=== PATIENT | female | born 1955 | race Caucasian/White ===

== ENCOUNTER 2016-11-26 18:33 | Emergency (ER) | payer MEDICAID ==
[2016-11-26 18:44] VITALS: O2SAT 97
[2016-11-26] MEDS ORDERED: Oxycodone/Acetaminophen 5/325 mg Tab PO STA (19:50)
[2016-11-26] MEDS ORDERED: Tmp-Smz 800 mg-160 mg DS Tab PO STA (19:50)
[2016-11-26] MEDS ORDERED: Tmp-Smz 800 mg-160 mg DS Tab ONE (20:12)
[2016-11-26] MEDS ORDERED: Oxycodone/Acetaminophen 5/325 mg Tab ONE (20:12)
--- NOTE | 2016-11-26 21:36 | C.PDOC ---
History Of Present Illness 61 year old female pt c/o small wound on the lower right abdomen that occurred a week ago. Pt notes abscess on lower right abdomen which became itchy and red the following day. Pt then notes cleaning the wound with peroxide. pt reports fever 5 days ago, but denies any skin discharges, nausea, vomiting, diarrhea, or any other complaints. Time Seen by Provider: 11/26/16 19:45 Chief Complaint (Nursing): Abnormal Skin Integrity History Per: Patient History/Exam Limitations: no limitations Onset/Duration Of Symptoms: Days Current Symptoms Are (Timing): Still Present Location Of Injury: Right: Abdomen (Lower right abdomen) Severity: Mild Past Medical History Reviewed: Historical Data, Nursing Documentation, Vital Signs Vital Signs: Last Vital Signs Temp 97.9 F 11/26/16 21:49 Pulse 60 11/26/16 21:49 Resp 18 11/26/16 21:49 BP 144/64 11/26/16 21:49 Pulse Ox 97 11/27/16 01:40 - Medical History PMH: Arthritis, HTN, Peripheral Edema Denies: Chronic Kidney Disease Family History: States: Unknown Family Hx - Social History Hx Tobacco Use: No Hx Alcohol Use: No Hx Substance Use: No - Immunization History Hx Tetanus Toxoid Vaccination: No Hx Influenza Vaccination: Yes Hx Pneumococcal Vaccination: No Review Of Systems Except As Marked, All Systems Reviewed And Found Negative. Constitutional: Positive for: Fever (5 days ago) Gastrointestinal: Negative for: Nausea, Vomiting, Diarrhea Skin: Positive for: Lesions (Right lower abdomen). Negative for: Other (Skin discharges) Physical Exam - Physical Exam Appears: Non-toxic, No Acute Distress Skin: Warm, Dry, Other (2 by 2 cm wound lower abdomen area. 8 by 2 cm cellulitis , no fluctuance) Head: Atraumatic, Normacephalic Chest: Symmetrical Cardiovascular: Rhythm Regular, No Murmur Respiratory: Normal Breath Sounds, No Rales, No Rhonchi, No Wheezing Gastrointestinal/Abdominal: Soft, No Tenderness Neurological/Psych: Oriented x3, Normal Speech, Normal Cognition ED Course And Treatment O2 Sat by Pulse Oximetry: 97 (Room air) Pulse Ox Interpretation: Normal Progress Note: wound cleaned and bandaged properly. NO circumferential nor dermatomal rash to suspect HZ Medical Decision Making Medical Decision Making: Impression: 61 year old female c/o small wound right lower abdomen Plan: -Oxycodone -Bactrim -Reassess and disposition cellulitis and small wound R lower abdomen, LOW susp HZ Patient is resting comfortably, and is in no acute distress. Patient was instructed to follow up with physician/clinic in 1-2 days for further evaluation. Disposition Doctor Will See Patient In The: Office Counseled Patient/Family Regarding: Studies Performed, Diagnosis - Disposition Referrals: Moustapha Christianson MD [Staff Provider] - Disposition: HOME/ ROUTINE Disposition Time: 21:36 Condition: GOOD Additional Instructions: Bactrim DS (antibiotico) 2 veces al federico por 5 luz entero Motrin 600 mg cada 6 horas nicky necesario para dolor Tramadol 50 mg (narcotico) 1 tableta cada 6 horas nicky necessario para adam mas louis Llava la herida con jabon y agua diario. NO pones agua hydroxinado ni alcohol en la herida- se hace peor. Prescriptions: Sulfamethoxazole/Trimethoprim [Bactrim DS 800 mg-160 mg] 1 tab PO BID #9 tab traMADol [Ultram] 50 mg PO Q6H PRN #20 tab PRN Reason: pain Instructions: Cellulitis (ED) Print Language: MALAY - Clinical Impression Clinical Impression: Wound cellulitis - Scribe Statement The provider has reviewed the documentation as recorded by the Scribe Vaughn olmedo All medical record entries made by the Scribe were at my direction and personally dictated by me. I have reviewed the chart and agree that the record accurately reflects my personal performance of the history, physical exam, medical decision making, and the department course for this patient. I have also personally directed, reviewed, and agree with the discharge instructions and disposition.
[2016-11-26 21:50] VITALS: BP 144/64; PULSE 60; RESP 18; TEMP 97.9
== END 2016-11-26 21:50 | disposition home or self-care (01) ==
LOC: C.ER 18:33
DX: S31.103A Unspecified open wound of abdominal wall, right lower quadrant without penetration into peritoneal cavity, initial encounter (principal); L03.311 Cellulitis of abdominal wall; X58.XXXA Exposure to other specified factors, initial encounter

== ENCOUNTER 2017-09-04 15:32 | Observation (INO) | payer MEDICAID ==
[2017-09-04] MEDS ORDERED: Sodium Chloride 0.9% 1,000 ML IV ONE (17:02)
--- NOTE | 2017-09-04 17:17 | C.PDOC ---
History Of Present Illness <Jessica Martinez - Last Filed: 09/04/17 18:38> <Kenny Vyas - Last Filed: 09/04/17 19:17> 62-year-old female, PMHx includes Hypertension, presents to the emergency department with multiple complaints. Patient states she has been experiencing chest pain, generalized weakness, dizziness, non-bloody/non-bilious vomiting and non-bloody/watery diarrhea, that started three days ago. Patient states her last episode of diarrhea and vomiting was yesterday. Patients main complaint today is dizziness, and states it is not positional. No prior cardiac Hx. (Jessica Martinez) History Per: Patient History/Exam Limitations: no limitations Onset/Duration Of Symptoms: Days Current Symptoms Are (Timing): Still Present Severity: Moderate <Jessica Martinez - Last Filed: 09/04/17 18:38> <Kenny Vyas - Last Filed: 09/04/17 19:17> Time Seen by Provider: 09/04/17 16:34 Chief Complaint (Nursing): Abdominal Pain Past Medical History Reviewed: Historical Data, Nursing Documentation, Vital Signs - Medical History PMH: Arthritis, HTN, Peripheral Edema Family History: States: No Known Family Hx - Social History Hx Tobacco Use: No Hx Alcohol Use: No Hx Substance Use: No - Immunization History Hx Tetanus Toxoid Vaccination: No Hx Influenza Vaccination: Yes Hx Pneumococcal Vaccination: No <Jessica Martinez - Last Filed: 09/04/17 18:38> Vital Signs: Last Vital Signs Temp 98.5 F 09/04/17 15:43 Pulse 63 09/04/17 15:43 Resp 18 09/04/17 15:43 BP 121/70 09/04/17 15:43 Pulse Ox 97 09/04/17 18:39 Review Of Systems Except As Marked, All Systems Reviewed And Found Negative. Constitutional: Negative for: Fever Cardiovascular: Negative for: Chest Pain Respiratory: Negative for: Shortness of Breath Gastrointestinal: Positive for: Nausea, Vomiting, Abdominal Pain, Diarrhea Musculoskeletal: Negative for: Back Pain Neurological: Positive for: Weakness, Dizziness Psych: Positive for: Psychosis <Jessica Martinez - Last Filed: 09/04/17 18:38> Physical Exam - Physical Exam Appears: Non-toxic, No Acute Distress Skin: Warm, Dry, No Rash Head: Atraumatic, Normacephalic Eye(s): bilateral: Normal Inspection, PERRL Nose: Normal Oral Mucosa: Moist Lips: Normal Appearing Neck: Normal ROM Cardiovascular: Rhythm Regular, No Murmur Respiratory: Normal Breath Sounds, No Accessory Muscle Use Gastrointestinal/Abdominal: Soft, No Tenderness, No Guarding, No Rebound Extremity: Normal ROM Neurological/Psych: Oriented x3, Normal Speech, Other (No focal deficits) <Jessica Martinez - Last Filed: 09/04/17 18:38> ED Course And Treatment - Laboratory Results Result Diagrams: 09/04/17 17:33 09/04/17 17:33 ECG: Interpreted By Me, Viewed By Me ECG Rhythm: Sinus Rhythm ECG Interpretation: No Acute Changes Rate From EC O2 Sat by Pulse Oximetry: 97 (on RA) Pulse Ox Interpretation: Normal - Radiology CXR: Interpreted by Me, Viewed By Me CXR Interpretation: Yes: No Acute Disease <Jessica Martinez - Last Filed: 09/04/17 18:38> - Laboratory Results Result Diagrams: 09/04/17 17:33 09/04/17 17:33 Rate From EC Reevaluation Time: 19:15 Reassessment Condition: Improved - Physician Consult Information Outcome Of Conversation: 1900: signed over pending adm/obs for CP, r/o ACS. pt seen and examined, confirms substernal chest discomfort 3 days with alternating pain and pressure. + digitally reproducable component to pain, no rash. d/w Hospitalist Dr. Barajas covering pts for Dr. Christianson ok to Tele Obs. <Kenny Vyas E - Last Filed: 09/04/17 19:17> Progress - Data Reviewed Data Reviewed: Lab, Diagnostic imaging, EKG, Old records <Jessica Martinez - Last Filed: 09/04/17 18:38> <Kenny Vyas - Last Filed: 09/04/17 19:17> - Re-Evaluation Re-evaluation Note: 09/04/17 18:38 PS NO CP CURRENTLY. (JuanJessica) Medical Decision Making <Jessica Martinez - Last Filed: 09/04/17 18:38> <Kenny Vyas - Last Filed: 09/04/17 19:17> Medical Decision Making: Plan: * EKG * CMP, Tropinin * CBC * Chest X-Ray * Aspirin, Pepcid, IVF, Zofran * Reassess and Disposition (Jessica Martinez) Disposition <Jessica Martinez - Last Filed: 09/04/17 18:38> Doctor Will See Patient In The: Hospital Counseled Patient/Family Regarding: Studies Performed, Diagnosis - Disposition Disposition Time: 19:16 <Kenny Vyas - Last Filed: 09/04/17 19:17> - Disposition Disposition: HOSPITALIZED Condition: GOOD Forms: [facility] (Micronesian) - Clinical Impression Clinical Impression: Chest pain - Scribe Statement The provider has reviewed the documentation as recorded by the Scribe (Megan Machado) <JuanJessica - Last Filed: 09/04/17 18:38> <Kenny Vyas - Last Filed: 09/04/17 19:17> - Scribe Statement All medical record entries made by the Scribe were at my direction and personally dictated by me. I have reviewed the chart and agree that the record accurately reflects my personal performance of the history, physical exam, medical decision making, and the department course for this patient. I have also personally directed, reviewed, and agree with the discharge instructions and disposition. (Jessica Martinez)
[2017-09-04] MEDS ORDERED: Sodium Chloride 0.9% 1,000 ML ONE (17:30)
[2017-09-04 17:44] LABS: EOS % 0.4 % (0.0-4.0); HEMOGLOBIN 12.6 g/dL (11.0-16.0); LYMPH # 1.2 K/uL (1.0-4.3); LYMPH % 41.1 % (20.0-40.0); MEAN CORPUSCULAR HEMOGLOBIN 29.2 pg (27.0-31.0); MEAN CORPUSCULAR HGB CONC 33.9 g/dL (33.0-37.0); MEAN PLATELET VOLUME 9.9 fL (7.2-11.7); MONO # 0.3 K/uL (0.0-0.8); MONO % 11.1 % (0.0-10.0); NEUT # 1.4 K/uL (1.8-7.0); NEUT % 46.4 % (50.0-75.0); NRBC % 0.1 % (0.0-2.0); RBC 4.32 Mil/uL (3.80-5.20); RED CELL DISTRIBUTION WIDTH 13.3 % (11.5-14.5); WHITE BLOOD COUNT 2.9 K/uL (4.8-10.8)
[2017-09-04 17:58] LABS: ALB/GLOB RATIO 1.2 (1.0-2.1); ALBUMIN 3.7 g/dL (3.5-5.0); ALT/SGPT 36 U/L (9-52); AST/SGOT 39 U/L (14-36); BLOOD UREA NITROGEN 20 mg/dL (7-17); GFR AFRICAN-AMERICAN > 60; GFR NON-AFRICAN AMERICAN > 60
--- NOTE | 2017-09-04 18:06 | RAD ---
HISTORY: chest pain COMPARISON: Michelle ryder is made to 10/30/2016 TECHNIQUE: Chest PA and lateral FINDINGS: LUNGS: No active pulmonary disease. PLEURA: No significant pleural effusion identified. No pneumothorax apparent. CARDIOVASCULAR: Normal. OSSEOUS STRUCTURES: No significant abnormalities. VISUALIZED UPPER ABDOMEN: Normal. OTHER FINDINGS: None. IMPRESSION: No active disease.
[2017-09-04] MEDS: Sodium Chloride 0.9% 1,000 ML IV SCH (21:25)
--- NOTE | 2017-09-04 21:26 | CP.PCM.HP ---
<Henry Pizano - Last Filed: 09/04/17 23:13> History of Present Illness - History of Present Illness History of Present Illness: PGY-1 H&P for Dr. Barajas CC: Chest pain This is a 62 year old female with PMHx HTN and hypothyroidism who presents complaining of non-radiating sternal chest pain for 3 days duration. Pain is described as a pressure and is worsened with coughing. Pain is not related to position. Patient has been experiencing cold-like symptoms since Tuesday of last week. Patient has also had 4 episodes of brown liquid diarrhea yesterday. It is also associated with epigastric pain which is unchanged with meals. Patient also complains of 2 episodes of vomiting yesterday. Patient vomited every time she ate something yesterday. No blood in stool or vomitus. PMHx: HTN, hypothyroidism PSHx: hysterectomy, Allergies: PCN Social: smoked socially and quit 40 years ago. Denies alcohol, drugs. Family Hx: Mother had open heart surgery at age 68. Father had pancreatic cancer. PMD: Dr. Christianson Home meds: Fish oil, ASA 81, Losartan/HCTZ 100/25 mg, Toprol XL 50 daily, Clonidine 0.2 mg PO BID, Kdurr 20 mEq 20 BID, Hydralazine 50 mg PO BID, vit D 2000 units daily Present on Admission - Present on Admission Any Indicators Present on Admission: No Review of Systems - Constitutional Constitutional: absent: Chills, Fever - EENT Eyes: absent: Change in Vision Ears: absent: Decreased Hearing Nose/Mouth/Throat: absent: Nasal Congestion - Cardiovascular Cardiovascular: Chest Pain. absent: Dyspnea - Respiratory Respiratory: Cough. absent: Dyspnea - Gastrointestinal Gastrointestinal: Diarrhea, Nausea, Vomiting. absent: Abdominal Pain, Constipation - Genitourinary Genitourinary: absent: Dysuria - Musculoskeletal Musculoskeletal: absent: Back Pain - Integumentary Integumentary: absent: Rash - Neurological Neurological: absent: Weakness - Psychiatric Psychiatric: absent: Anxiety - Endocrine Endocrine: absent: Fatigue, Palpitations Past Patient History - Infectious Disease Hx of Infectious Diseases: None - Past Medical History & Family History Past Medical History?: Yes - Past Social History Smoking Status: Never Smoked - CARDIAC Hx Hypertension: Yes Hx Peripheral Edema: Yes - PULMONARY Hx Respiratory Disorders: No - NEUROLOGICAL Hx Neurological Disorder: Yes Hx Dizziness: Yes - HEENT Hx HEENT Problems: Yes Other/Comment: ear wax - RENAL Hx Chronic Kidney Disease: No - ENDOCRINE/METABOLIC Hx Endocrine Disorders: Yes (thyroid nodules) - HEMATOLOGICAL/ONCOLOGICAL Hx Blood Disorders: No - INTEGUMENTARY Hx Dermatological Problems: No - MUSCULOSKELETAL/RHEUMATOLOGICAL Hx Arthritis: Yes - GASTROINTESTINAL Hx Gastrointestinal Disorders: No - GENITOURINARY/GYNECOLOGICAL Hx Genitourinary Disorders: Yes (hx fibroids) - PSYCHIATRIC Hx Substance Use: No - SURGICAL HISTORY Hx Surgeries: Yes Hx Breast Biopsy: Yes Hx Hysterectomy: Yes Other/Comment: Right breast lumpectomies x2 - ANESTHESIA Hx Anesthesia: Yes Hx Anesthesia Reactions: Yes (incoherent) Hx Malignant Hyperthermia: No Meds Allergies/Adverse Reactions: Allergies Allergy/AdvReac Type Severity Reaction Status Date / Time Penicillins Allergy SHORTNESS Verified 09/04/17 15:37 OF BREATH Physical Exam - Constitutional Appears: No Acute Distress - Head Exam Head Exam: ATRAUMATIC, NORMOCEPHALIC - Eye Exam Eye Exam: EOMI, PERRL - ENT Exam ENT Exam: Mucous Membranes Moist - Respiratory Exam Respiratory Exam: Clear to Auscultation Bilateral. absent: Rales, Rhonchi, Wheezes - Cardiovascular Exam Cardiovascular Exam: REGULAR RHYTHM, +S1, +S2 - GI/Abdominal Exam GI & Abdominal Exam: Normal Bowel Sounds, Soft. absent: Distended, Tenderness - Extremities Exam Extremities exam: Positive for: pedal edema (non-pitting), pedal pulses present. Negative for: tenderness - Neurological Exam Neurological exam: Alert, CN II-XII Intact, Oriented x3 - Psychiatric Exam Psychiatric exam: Normal Affect, Normal Mood - Skin Skin Exam: Dry, Intact, Normal Color, Warm Results - Vital Signs Recent Vital Signs: Last Vital Signs Temp 98.2 F 09/04/17 20:55 Pulse 58 L 09/04/17 20:55 Resp 20 09/04/17 20:55 BP 170/80 H 09/04/17 20:55 Pulse Ox 98 09/04/17 20:55 - Labs Result Diagrams: 09/04/17 17:33 09/04/17 17:33 Labs: Laboratory Results - last 24 hr 09/04/17 09/04/17 17:33 17:33 WBC 2.9 L D RBC 4.32 Hgb 12.6 Hct 37.2 MCV 86.0 MCH 29.2 MCHC 33.9 RDW 13.3 Plt Count 176 MPV 9.9 Neut % (Auto) 46.4 L Lymph % (Auto) 41.1 H Glenn % (Auto) 11.1 H Eos % (Auto) 0.4 Baso % (Auto) 1.0 Neut # 1.4 L Lymph # 1.2 Glenn # 0.3 Eos # 0.0 Baso # 0.0 Sodium 132 Potassium 3.6 Chloride 95 L Carbon Dioxide 33 H Anion Gap 8 L BUN 20 H Creatinine 0.8 Est GFR ( Amer) > 60 Est GFR (Non-Af Amer) > 60 Random Glucose 112 H Calcium 8.0 L Total Bilirubin 0.3 AST 39 H ALT 36 Alkaline Phosphatase 44 Troponin I < 0.0120 Total Protein 6.7 Albumin 3.7 Globulin 3.0 Albumin/Globulin Ratio 1.2 Assessment & Plan - Assessment and Plan (Free Text) Plan: Chest pain EKG showed sinus arrhythmia First JEF negative. F/u jef x2 F/u echo Cardiology consult, Dr. Jaja Gaytan, help appreciated Diarrhea NS 100 cc/hr f/u stool culture f/u stool leukocytes History of HTN restarted home Clonidine 0.2 mg PO BID restarted home Hydralazine 50 mg PO BID restarted home Losartan 100 mg PO daily restarted home HCTZ 25 mg PO daily History of Hypothyroidism not on home meds F/u TSH and free T4 Prophylactic Measures clear liquid diet Protonix 40 PO daily Heparin 5000 units SC Q8 f/u lipid panel f/u hemoglobin A1c <Lencho Barajas - Last Filed: 09/05/17 05:24> Results - Vital Signs Recent Vital Signs: Last Vital Signs Temp 98.5 F 09/04/17 23:45 Pulse 57 L 09/05/17 00:46 Resp 18 09/04/17 23:45 BP 168/73 H 09/04/17 23:45 Pulse Ox 97 09/04/17 23:45 - Labs Result Diagrams: 09/04/17 17:33 09/04/17 17:33 Labs: Laboratory Results - last 24 hr 09/04/17 09/04/17 09/05/17 17:33 17:33 00:20 WBC 2.9 L D RBC 4.32 Hgb 12.6 Hct 37.2 MCV 86.0 MCH 29.2 MCHC 33.9 RDW 13.3 Plt Count 176 MPV 9.9 Neut % (Auto) 46.4 L Lymph % (Auto) 41.1 H Glenn % (Auto) 11.1 H Eos % (Auto) 0.4 Baso % (Auto) 1.0 Neut # 1.4 L Lymph # 1.2 Glenn # 0.3 Eos # 0.0 Baso # 0.0 Sodium 132 Potassium 3.6 Chloride 95 L Carbon Dioxide 33 H Anion Gap 8 L BUN 20 H Creatinine 0.8 Est GFR ( Amer) > 60 Est GFR (Non-Af Amer) > 60 Random Glucose 112 H Calcium 8.0 L Total Bilirubin 0.3 AST 39 H ALT 36 Alkaline Phosphatase 44 Total Creatine Kinase 208 H CK-MB (Mass) 2.11 Troponin I < 0.0120 < 0.0120 Total Protein 6.7 Albumin 3.7 Globulin 3.0 Albumin/Globulin Ratio 1.2 Assessment & Plan - Date & Time Date: 09/05/17 (I have seen and examined the patient. I agree with the findings and plan of care as documented by Dr. Pizano. Patient with chest pain. EKG with some irregularity. Consult to Cardio. Corie with EKG. Aspirin and Statin. Continue home meds for history of hypertension. Monitor for acute changes.) Time: 05:23 Attending/Attestation - Attestation I have personally seen and examined this patient.: Yes I have fully participated in the care of the patient.: Yes I have reviewed all pertinent clinical information: Yes
[2017-09-05 00:51] LABS: CK-MB 2.11 ng/mL (0.0-3.38)
[2017-09-05 07:47] LABS: BASO % 0.4 % (0.0-2.0); EOS % 0.7 % (0.0-4.0); HEMOGLOBIN 11.8 g/dL (11.0-16.0); LYMPH # 1.6 K/uL (1.0-4.3); LYMPH % 65.4 % (20.0-40.0); MEAN CORPUSCULAR HEMOGLOBIN 29.3 pg (27.0-31.0); MEAN CORPUSCULAR HGB CONC 33.7 g/dL (33.0-37.0); MEAN PLATELET VOLUME 9.9 fL (7.2-11.7); MONO # 0.3 K/uL (0.0-0.8); MONO % 11.1 % (0.0-10.0); NEUT # 0.6 K/uL (1.8-7.0); NEUT % 22.4 % (50.0-75.0); NRBC % 0.2 % (0.0-2.0); RBC 4.04 Mil/uL (3.80-5.20); RED CELL DISTRIBUTION WIDTH 13.4 % (11.5-14.5); WHITE BLOOD COUNT 2.5 K/uL (4.8-10.8)
[2017-09-05] MEDS: Sodium Chloride 0.9% 1,000 ML IV SCH (08:09)
[2017-09-05 08:27] LABS: CK-MB 2.05 ng/mL (0.0-3.38)
[2017-09-05 08:33] VITALS: RESP 20
[2017-09-05 08:36] LABS: ALB/GLOB RATIO 1.2 (1.0-2.1); ALBUMIN 3.2 g/dL (3.5-5.0); ALT/SGPT 33 U/L (9-52); AST/SGOT 33 U/L (14-36); BLOOD UREA NITROGEN 14 mg/dL (7-17); CALCIUM 7.7 mg/dl (8.6-10.4); GFR AFRICAN-AMERICAN > 60; GFR NON-AFRICAN AMERICAN > 60; HDL CHOLESTEROL 44 mg/dL (30-70)
[2017-09-05 08:48] LABS: LDL CHOLESTEROL 76 mg/dL (0-129)
[2017-09-05] MEDS: Potassium Chloride 20 mEq ER Tab PO SCH ×2 (09:29→18:03)
[2017-09-05] MEDS: Pantoprazole 40 mg EC Tab PO SCH (09:29)
[2017-09-05] MEDS: Metoprolol Succinate 50 mg XL Tab PO SCH (09:30)
[2017-09-05] MEDS ORDERED: Metoprolol Succinate 50 mg XL Tab PO SCH (10:00)
[2017-09-05] MEDS ORDERED: Potassium Chloride 20 mEq ER Tab PO ONE (10:52)
--- NOTE | 2017-09-05 15:15 | CP.PCM.PN ---
Subjective - Date & Time of Evaluation Date of Evaluation: 09/05/17 Time of Evaluation: 13:00 - Subjective Subjective: Sitting comfortable,Not in pain,No vomiting ,no diarrhea. s/p Restro sternal chest pain,non radiating pain Chest pain on palpation noted Objective - Vital Signs/Intake and Output Vital Signs (last 24 hours): Temp Pulse Resp BP Pulse Ox 97.8 F 57 L 20 179/79 H 97 09/05/17 07:35 09/05/17 07:35 09/05/17 07:35 09/05/17 07:35 09/05/17 07:35 Intake and Output: 09/05/17 09/05/17 06:59 18:59 Intake Total 910 480 Balance 910 480 - Medications Medications: Current Medications Aspirin (Aspirin Chewable) 81 mg PO DAILY [facility] Last Admin: 09/05/17 09:28 Dose: 81 mg Clonidine HCl (Catapres) 0.2 mg PO BID [facility] Last Admin: 09/05/17 09:29 Dose: 0.2 mg Heparin Sodium (Porcine) (Heparin) 5,000 units SC Q8 [facility] Last Admin: 09/05/17 13:38 Dose: 5,000 units Hydralazine HCl (Apresoline) 50 mg PO BID [facility] Last Admin: 09/05/17 09:29 Dose: 50 mg Hydrochlorothiazide (Hydrodiuril) 25 mg PO DAILY [facility] Last Admin: 09/05/17 09:29 Dose: 25 mg Losartan Potassium (Cozaar) 100 mg PO DAILY [facility] Last Admin: 09/05/17 09:28 Dose: 100 mg Metoprolol Succinate (Toprol Xl) 50 mg PO DAILY [facility] Last Admin: 09/05/17 09:30 Dose: 50 mg Pantoprazole Sodium (Protonix Ec Tab) 40 mg PO DAILY [facility] Last Admin: 09/05/17 09:29 Dose: 40 mg Potassium Chloride (K-Dur 20 Meq Er Tab) 20 meq PO BID [facility] Last Admin: 09/05/17 09:29 Dose: 20 meq - Labs Labs: 09/05/17 07:17 09/05/17 07:17 APTT 31 SECONDS (21-34) 09/05/17 07:17 - Constitutional Appears: Well, No Acute Distress - Head Exam Head Exam: NORMAL INSPECTION - Eye Exam Eye Exam: Normal appearance - ENT Exam ENT Exam: Mucous Membranes Moist - Neck Exam Neck Exam: Full ROM - Respiratory Exam Respiratory Exam: Chest Wall Tenderness (mild tenderness on palpation), Clear to Ausculation Bilateral - Cardiovascular Exam Cardiovascular Exam: REGULAR RHYTHM - GI/Abdominal Exam GI & Abdominal Exam: Soft, Normal Bowel Sounds - Extremities Exam Extremities Exam: Full ROM - Back Exam Back Exam: NORMAL INSPECTION - Psychiatric Exam Psychiatric exam: Normal Mood - Skin Skin Exam: Dry Assessment and Plan - Assessment and Plan (Free Text) Assessment: 62 years old female with history of HTN and hypothyroidism is admitted last night for chest pain.Troponin normal,Has new T wave changes on her EKG. Pending ECHO Plan: 1.Chest pain EKG T wave inversion troponin negative x3 F/u echo. Cardiology consult, Dr. Jaja Gaytan, help appreciated 2.Diarrhea improved/start diet and stop fluids f/u stool culture 3 History of HTN On Home meds Clonidine 0.2 mg PO BID, Hydralazine 50 mg PO BID Losartan 100 mg PO daily, HCTZ 25 mg PO daily 4.History of Hypothyroidism not on home meds F/u TSH and free T4 5. Prophylactic Measures Protonix 40 PO daily Heparin 5000 units SC Q8
--- NOTE | 2017-09-05 19:58 | CON ---
DATE: CARDIOLOGY CONSULTATION HISTORY OF PRESENT ILLNESS: This is a 62-year-old female, came to the emergency room with history of heaviness in the chest for the last 3 days. Patient also has history of severe cough for the last 1 week. Patient has cold symptoms. Patient also has nausea, vomiting, and diarrhea. No history of fever. No diaphoresis. REVIEW OF SYSTEMS: CARDIOVASCULAR: Positive for substernal chest pain. No diaphoresis. RESPIRATORY: Positive for cough. GASTROINTESTINAL: Positive for nausea and vomiting. CENTRAL NERVOUS SYSTEM: No focal neurological complaints offered. GENITOURINARY: No urinary complaints. All other systems are negative. PAST MEDICAL HISTORY: History of hypertension, hypothyroidism. No myocardial infarction. FAMILY HISTORY: No known inherited disease. SOCIAL HISTORY: Nonsmoker, nonalcoholic, no IVDA. ALLERGIES: PATIENT IS ALLERGIC TO PENICILLIN. MEDICATIONS: Fish oil, aspirin, losartan/HCTZ, Toprol, clonidine, K-Dur, hydralazine, vitamin D. PHYSICAL EXAMINATION: GENERAL: This is a 62-year-old female, alert, oriented, comfortable. VITAL SIGNS: Temperature 98.2, pulse 58, respirations 20, blood pressure 170/80 mmHg, pulse ox is 98% on room air. HEENT: Normal. NECK: JVP is flat. Carotids, no bruits. LUNGS: No rales. No wheezing. HEART: S1 and S2 normal. No gallop. No murmur. ABDOMEN: Soft, nontender. No organomegaly. CENTRAL NERVOUS SYSTEM: No focal neurological deficits. EXTREMITIES: No edema of the legs. LABORATORY DATA: On admission, EKG shows sinus bradycardia with sinus arrhythmia and prolonged QT interval. White cell count is low, 2.9. Platelets are normal. Potassium is 3.6. BUN 20. Chest x-ray is within normal limit. Patient has three JEF done, which are negative. IMPRESSION: Chest pain, most likely secondary to cough. Hypertension. Abnormal EKG. Cold symptoms. PLAN: Suggest, agree with present management. Patient needs echocardiogram. Patient needs cardiac workup which can be done as an outpatient. Agree with present management. Jaja Gaytan MD
[2017-09-06 02:03] VITALS: O2SAT 97
[2017-09-06 06:48] LABS: BASO % 0.4 % (0.0-2.0); EOS % 0.7 % (0.0-4.0); LYMPH # 1.7 K/uL (1.0-4.3); LYMPH % 60.2 % (20.0-40.0); MEAN CELL VOLUME 86.6 fL (81.0-99.0); MEAN CORPUSCULAR HEMOGLOBIN 29.6 pg (27.0-31.0); MEAN CORPUSCULAR HGB CONC 34.1 g/dL (33.0-37.0); MEAN PLATELET VOLUME 9.8 fL (7.2-11.7); MONO # 0.3 K/uL (0.0-0.8); MONO % 10.7 % (0.0-10.0); NEUT # 0.8 K/uL (1.8-7.0); NRBC % 0.1 % (0.0-2.0); RBC 4.07 Mil/uL (3.80-5.20); WHITE BLOOD COUNT 2.8 K/uL (4.8-10.8)
[2017-09-06 07:02] LABS: ALB/GLOB RATIO 1.3 (1.0-2.1); ALBUMIN 3.3 g/dL (3.5-5.0); ALT/SGPT 32 U/L (9-52); AST/SGOT 27 U/L (14-36); BLOOD UREA NITROGEN 16 mg/dL (7-17); CALCIUM 8.1 mg/dl (8.6-10.4); GFR AFRICAN-AMERICAN > 60; GFR NON-AFRICAN AMERICAN > 60
[2017-09-06] MEDS: Metoprolol Succinate 50 mg XL Tab PO SCH (09:42)
[2017-09-06] MEDS: Pantoprazole 40 mg EC Tab PO SCH (09:43)
[2017-09-06] MEDS: Potassium Chloride 20 mEq ER Tab PO SCH (09:43)
[2017-09-06 10:32] LABS: SQUAMOUS EPITHIAL 1 /hpf (0-5); URINE BILIRUBIN NEGATIVE (NEGATIVE); URINE BLOOD NEGATIVE (NEGATIVE); URINE CLARITY Clear (Clear); URINE COLOR Yellow (YELLOW); URINE GLUCOSE (UA) NORMAL (Normal); URINE LEUKOCYTE ESTERASE NEG Leu/uL (Negative); URINE NITRATE NEGATIVE (NEGATIVE); URINE PROTEIN NEGATIVE (NEGATIVE); URINE UROBILINOGEN NORMAL mg/dL (0.2-1.0)
--- NOTE | 2017-09-06 10:53 | CP.PCM.DIS ---
<Latha Lanza - Last Filed: 09/06/17 16:30> Provider - Provider Date of Admission: 09/04/17 19:14 Attending physician: Lencho Barajas MD Primary care physician: Dr. Christianson Consults: Dr. Jaja Gaytan (cardiology) Time Spent in preparation of Discharge (in minutes): 45 Diagnosis - Discharge Diagnosis (1) Chest pain Status: Resolved (2) Hypertension Status: Chronic Hospital Course - Lab Results Lab Results: Most Recent Lab Values WBC 2.8 K/uL (4.8-10.8) L 09/06/17 06:32 RBC 4.07 Mil/uL (3.80-5.20) 09/06/17 06:32 Hgb 12.0 g/dL (11.0-16.0) 09/06/17 06:32 Hct 35.2 % (34.0-47.0) 09/06/17 06:32 MCV 86.6 fL (81.0-99.0) 09/06/17 06:32 MCH 29.6 pg (27.0-31.0) 09/06/17 06:32 MCHC 34.1 g/dL (33.0-37.0) 09/06/17 06:32 RDW 13.0 % (11.5-14.5) 09/06/17 06:32 Plt Count 170 K/uL (130-400) 09/06/17 06:32 MPV 9.8 fL (7.2-11.7) 09/06/17 06:32 Neut % (Auto) 28.0 % (50.0-75.0) L 09/06/17 06:32 Lymph % (Auto) 60.2 % (20.0-40.0) H 09/06/17 06:32 Gage % (Auto) 10.7 % (0.0-10.0) H 09/06/17 06:32 Eos % (Auto) 0.7 % (0.0-4.0) 09/06/17 06:32 Baso % (Auto) 0.4 % (0.0-2.0) 09/06/17 06:32 Neut # 0.8 K/uL (1.8-7.0) L 09/06/17 06:32 Lymph # 1.7 K/uL (1.0-4.3) 09/06/17 06:32 Gage # 0.3 K/uL (0.0-0.8) 09/06/17 06:32 Eos # 0.0 K/uL (0.0-0.7) 09/06/17 06:32 Baso # 0.0 K/uL (0.0-0.2) 09/06/17 06:32 Differential Comment 09/05/17 07:17 APTT 31 SECONDS (21-34) 09/05/17 07:17 Sodium 136 mmol/L (132-148) 09/06/17 06:32 Potassium 4.0 mmol/L (3.6-5.2) 09/06/17 06:32 Chloride 101 mmol/L (98-107) 09/06/17 06:32 Carbon Dioxide 30 mmol/L (22-30) 09/06/17 06:32 Anion Gap 9 (10-20) L 09/06/17 06:32 BUN 16 mg/dL (7-17) 09/06/17 06:32 Creatinine 0.8 mg/dL (0.7-1.2) 09/06/17 06:32 Est GFR ( Amer) > 60 09/06/17 06:32 Est GFR (Non-Af Amer) > 60 09/06/17 06:32 Random Glucose 97 mg/dL (65-105) 09/06/17 06:32 Hemoglobin A1c 6.5 % (4.2-6.5) 09/05/17 07:17 Calcium 8.1 mg/dl (8.6-10.4) L 09/06/17 06:32 Total Bilirubin 0.3 mg/dL (0.2-1.3) 09/06/17 06:32 AST 27 U/L (14-36) 09/06/17 06:32 ALT 32 U/L (9-52) 09/06/17 06:32 Alkaline Phosphatase 39 U/L (38-126) 09/06/17 06:32 Total Creatine Kinase 192 U/L (30-135) H 09/05/17 07:25 CK-MB (Mass) 2.05 ng/mL (0.0-3.38) 09/05/17 07:25 Troponin I < 0.0120 ng/mL (0.00-0.120) 09/05/17 07:25 Total Protein 5.9 g/dL (6.3-8.3) L 09/06/17 06:32 Albumin 3.3 g/dL (3.5-5.0) L 09/06/17 06:32 Globulin 2.6 gm/dL (2.2-3.9) 09/06/17 06:32 Albumin/Globulin Ratio 1.3 (1.0-2.1) 09/06/17 06:32 Triglycerides 91 mg/dL (0-149) D 09/05/17 07:17 Cholesterol 155 mg/dL (0-199) 09/05/17 07:17 LDL Cholesterol Direct 76 mg/dL (0-129) 09/05/17 07:17 HDL Cholesterol 44 mg/dL (30-70) 09/05/17 07:17 Free T4 1.37 ng/dL (0.78-2.19) 09/05/17 07:17 TSH 3rd Generation 2.44 mIU/L (0.46-4.68) 09/05/17 07:17 Urine Color Yellow (YELLOW) 09/06/17 10:24 Urine Clarity Clear (Clear) 09/06/17 10:24 Urine pH 5.0 (5.0-8.0) 09/06/17 10:24 Ur Specific [place] 1.018 (1.003-1.030) 09/06/17 10:24 Urine Protein Negative mg/dL (NEGATIVE) 09/06/17 10:24 Urine Glucose (UA) Normal mg/dL (Normal) 09/06/17 10:24 Urine Ketones Negative mg/dL (NEGATIVE) 09/06/17 10:24 Urine Blood Negative (NEGATIVE) 09/06/17 10:24 Urine Nitrate Negative (NEGATIVE) 09/06/17 10:24 Urine Bilirubin Negative (NEGATIVE) 09/06/17 10:24 Urine Urobilinogen Normal mg/dL (0.2-1.0) 09/06/17 10:24 Ur Leukocyte Esterase Neg Artis/uL (Negative) 09/06/17 10:24 Urine WBC (Auto) 2 /hpf (0-5) 09/06/17 10:24 Urine RBC (Auto) 1 /hpf (0-3) 09/06/17 10:24 Ur Squamous Epith Cells 1 /hpf (0-5) 09/06/17 10:24 Stool Leukocytes, Qual Negative (NEGATIVE) 09/04/17 Unknown - Hospital Course Hospital Course: "CC: Chest pain This is a 62 year old female with PMHx HTN and hypothyroidism who presents complaining of non-radiating sternal chest pain for 3 days duration. Pain is described as a pressure and is worsened with coughing. Pain is not related to position. Patient has been experiencing cold-like symptoms since Tuesday of last week. Patient has also had 4 episodes of brown liquid diarrhea yesterday. It is also associated with epigastric pain which is unchanged with meals. Patient also complains of 2 episodes of vomiting yesterday. Patient vomited every time she ate something yesterday. No blood in stool or vomitus." Patient admitted to rule out ACS. On admission EKG showed bradycardia with sinus arrhythmia and prolonged QT interval. Cardiology, Dr. Jaja Gaytan was consulted. Troponins were negative x 3. As per Dr. Gaytan, patient should continue cardiac workup as an outpatient including an Echo. Patient's chest pain has resolved. Patient put on normal saline for hydration due to her diarrhea. Stool leukocytes came back negative. Diarrhea resolved. Patient continued on home medications for her hypertension. Patient should continue her home medications as an outpatient. Patient has a history of hypothyroidism, but was not taking any home medications. TSH is 2.44 and T4 is 1.37. Patient should continue to monitor this with her primary care doctor. Patient was also put on protonix and heparin as prophylactic measures. Patient stable for discharge as per Dr. Geronimo and Dr. Gaytan. This is a summary of the patient's hospital course, please see chart for full details. Discharge Exam - Head Exam Head Exam: NORMAL INSPECTION - Eye Exam Eye Exam: EOMI, Normal appearance - ENT Exam ENT Exam: Mucous Membranes Moist - Respiratory Exam Respiratory Exam: Clear to PA & Lateral, NORMAL BREATHING PATTERN, UNREMARKABLE - Cardiovascular Exam Cardiovascular Exam: REGULAR RHYTHM, +S1, +S2 - GI/Abdominal Exam GI & Abdominal Exam: Normal Bowel Sounds, Soft. absent: Tenderness - Extremities Exam Extremities exam: normal inspection - Neurological Exam Neurological exam: Alert, Oriented x3 - Psychiatric Exam Psychiatric exam: Normal Affect, Normal Mood - Skin Skin Exam: Intact, Normal Color, Warm Discharge Plan - Follow Up Plan Condition: GOOD Disposition: HOME/ ROUTINE Instructions: Chest Pain (DC) Additional Instructions: Patient to continue all home medications. Patient to follow up with Dr. Jaja Gaytan (cardiology) as an outpatient within one week to continue her cardiac workup. Patient to follow up with her primary care doctor. Patient to please return to Emergency Room if symptoms return or worsen. Referrals: Jaja Gaytan MD [Staff Provider] - <Tanesha Geronimo - Last Filed: 09/06/17 18:08> Provider - Provider Date of Admission: 09/04/17 19:14 Attending physician: Lencho Barajas MD Hospital Course - Lab Results Lab Results: Most Recent Lab Values WBC 2.8 K/uL (4.8-10.8) L 09/06/17 06:32 RBC 4.07 Mil/uL (3.80-5.20) 09/06/17 06:32 Hgb 12.0 g/dL (11.0-16.0) 09/06/17 06:32 Hct 35.2 % (34.0-47.0) 09/06/17 06:32 MCV 86.6 fL (81.0-99.0) 09/06/17 06:32 MCH 29.6 pg (27.0-31.0) 09/06/17 06:32 MCHC 34.1 g/dL (33.0-37.0) 09/06/17 06:32 RDW 13.0 % (11.5-14.5) 09/06/17 06:32 Plt Count 170 K/uL (130-400) 09/06/17 06:32 MPV 9.8 fL (7.2-11.7) 09/06/17 06:32 Neut % (Auto) 28.0 % (50.0-75.0) L 09/06/17 06:32 Lymph % (Auto) 60.2 % (20.0-40.0) H 09/06/17 06:32 Gage % (Auto) 10.7 % (0.0-10.0) H 09/06/17 06:32 Eos % (Auto) 0.7 % (0.0-4.0) 09/06/17 06:32 Baso % (Auto) 0.4 % (0.0-2.0) 09/06/17 06:32 Neut # 0.8 K/uL (1.8-7.0) L 09/06/17 06:32 Lymph # 1.7 K/uL (1.0-4.3) 09/06/17 06:32 Gage # 0.3 K/uL (0.0-0.8) 09/06/17 06:32 Eos # 0.0 K/uL (0.0-0.7) 09/06/17 06:32 Baso # 0.0 K/uL (0.0-0.2) 09/06/17 06:32 Differential Comment 09/05/17 07:17 APTT 31 SECONDS (21-34) 09/05/17 07:17 Sodium 136 mmol/L (132-148) 09/06/17 06:32 Potassium 4.0 mmol/L (3.6-5.2) 09/06/17 06:32 Chloride 101 mmol/L (98-107) 09/06/17 06:32 Carbon Dioxide 30 mmol/L (22-30) 09/06/17 06:32 Anion Gap 9 (10-20) L 09/06/17 06:32 BUN 16 mg/dL (7-17) 09/06/17 06:32 Creatinine 0.8 mg/dL (0.7-1.2) 09/06/17 06:32 Est GFR ( Amer) > 60 09/06/17 06:32 Est GFR (Non-Af Amer) > 60 09/06/17 06:32 Random Glucose 97 mg/dL (65-105) 09/06/17 06:32 Hemoglobin A1c 6.5 % (4.2-6.5) 09/05/17 07:17 Calcium 8.1 mg/dl (8.6-10.4) L 09/06/17 06:32 Total Bilirubin 0.3 mg/dL (0.2-1.3) 09/06/17 06:32 AST 27 U/L (14-36) 09/06/17 06:32 ALT 32 U/L (9-52) 09/06/17 06:32 Alkaline Phosphatase 39 U/L (38-126) 09/06/17 06:32 Total Creatine Kinase 192 U/L (30-135) H 09/05/17 07:25 CK-MB (Mass) 2.05 ng/mL (0.0-3.38) 09/05/17 07:25 Troponin I < 0.0120 ng/mL (0.00-0.120) 09/05/17 07:25 Total Protein 5.9 g/dL (6.3-8.3) L 09/06/17 06:32 Albumin 3.3 g/dL (3.5-5.0) L 09/06/17 06:32 Globulin 2.6 gm/dL (2.2-3.9) 09/06/17 06:32 Albumin/Globulin Ratio 1.3 (1.0-2.1) 09/06/17 06:32 Triglycerides 91 mg/dL (0-149) D 09/05/17 07:17 Cholesterol 155 mg/dL (0-199) 09/05/17 07:17 LDL Cholesterol Direct 76 mg/dL (0-129) 09/05/17 07:17 HDL Cholesterol 44 mg/dL (30-70) 09/05/17 07:17 Free T4 1.37 ng/dL (0.78-2.19) 09/05/17 07:17 TSH 3rd Generation 2.44 mIU/L (0.46-4.68) 09/05/17 07:17 Urine Color Yellow (YELLOW) 09/06/17 10:24 Urine Clarity Clear (Clear) 09/06/17 10:24 Urine pH 5.0 (5.0-8.0) 09/06/17 10:24 Ur Specific [place] 1.018 (1.003-1.030) 09/06/17 10:24 Urine Protein Negative mg/dL (NEGATIVE) 09/06/17 10:24 Urine Glucose (UA) Normal mg/dL (Normal) 09/06/17 10:24 Urine Ketones Negative mg/dL (NEGATIVE) 09/06/17 10:24 Urine Blood Negative (NEGATIVE) 09/06/17 10:24 Urine Nitrate Negative (NEGATIVE) 09/06/17 10:24 Urine Bilirubin Negative (NEGATIVE) 09/06/17 10:24 Urine Urobilinogen Normal mg/dL (0.2-1.0) 09/06/17 10:24 Ur Leukocyte Esterase Neg Artis/uL (Negative) 09/06/17 10:24 Urine WBC (Auto) 2 /hpf (0-5) 09/06/17 10:24 Urine RBC (Auto) 1 /hpf (0-3) 09/06/17 10:24 Ur Squamous Epith Cells 1 /hpf (0-5) 09/06/17 10:24 Stool Leukocytes, Qual Negative (NEGATIVE) 09/04/17 Unknown Attending/Attestation - Attestation I have personally seen and examined this patient.: Yes I have fully participated in the care of the patient.: Yes I have reviewed all pertinent clinical information, including history, physical exam and plan: Yes Notes (Text): Seen and examined today,no chest pain,patient will be discharged home D/W patient and her daughter .Follow through operator as an out pt asked to follow her primary care to check her WBC/While cells or blood count 09/06/17 18:06
--- NOTE | 2017-09-06 13:21 | CARD ---
APPROVED REPORT EKG Measurement Heart [id number] IA 136P-8 [id number] <Conclusion> Sinus rhythm with marked sinus arrhythmia Nonspecific ST and T wave abnormality Abnormal ECG
--- NOTE | 2017-09-06 13:40 | CP.PCM.PN ---
Subjective - Date & Time of Evaluation Date of Evaluation: 09/06/17 Time of Evaluation: 13:38 - Subjective Subjective: NO CHEST PAIN. BP CONTROLLED. Objective - Vital Signs/Intake and Output Vital Signs (last 24 hours): Temp Pulse Resp BP Pulse Ox 97.7 F 52 L 20 151/74 H 97 09/06/17 07:35 09/06/17 12:00 09/06/17 07:35 09/06/17 09:45 09/06/17 07:35 Intake and Output: 09/06/17 09/06/17 06:59 18:59 Intake Total 345 Balance 345 - Medications Medications: Current Medications Aspirin (Aspirin Chewable) 81 mg PO DAILY [facility] Last Admin: 09/06/17 09:43 Dose: 81 mg Clonidine HCl (Catapres) 0.2 mg PO BID [facility] Last Admin: 09/06/17 09:44 Dose: 0.2 mg Heparin Sodium (Porcine) (Heparin) 5,000 units SC Q8 [facility] Last Admin: 09/06/17 05:54 Dose: 5,000 units Hydralazine HCl (Apresoline) 50 mg PO BID [facility] Last Admin: 09/06/17 09:43 Dose: 50 mg Hydrochlorothiazide (Hydrodiuril) 25 mg PO DAILY [facility] Last Admin: 09/06/17 09:44 Dose: 25 mg Losartan Potassium (Cozaar) 100 mg PO DAILY [facility] Last Admin: 09/06/17 10:07 Dose: 100 mg Metoprolol Succinate (Toprol Xl) 50 mg PO DAILY [facility] Last Admin: 09/06/17 09:42 Dose: Not Given Pantoprazole Sodium (Protonix Ec Tab) 40 mg PO DAILY [facility] Last Admin: 09/06/17 09:43 Dose: 40 mg Potassium Chloride (K-Dur 20 Meq Er Tab) 20 meq PO BID [facility] Last Admin: 09/06/17 09:43 Dose: 20 meq - Labs Labs: 09/06/17 06:32 09/06/17 06:32 APTT 31 SECONDS (21-34) 09/05/17 07:17 - Constitutional Appears: No Acute Distress, Chronically Ill - Eye Exam Eye Exam: Normal appearance, PERRL - ENT Exam ENT Exam: Mucous Membranes Moist - Respiratory Exam Respiratory Exam: Clear to Ausculation Bilateral, NORMAL BREATHING PATTERN - Cardiovascular Exam Cardiovascular Exam: REGULAR RHYTHM, +S1, +S2 - GI/Abdominal Exam GI & Abdominal Exam: Soft, Normal Bowel Sounds - Extremities Exam Extremities Exam: Full ROM, Normal Capillary Refill, Normal Inspection. absent : Joint Swelling, Pedal Edema Assessment and Plan - Assessment and Plan (Free Text) Assessment: CARDIAC STABLE. BP CONTROLLED. NEG ND. Plan: OK FOR DISCHARGE. F/U CARDIOLOGY FOR FURTHER W/U.
--- NOTE | 2017-09-06 13:40 | CARD ---
APPROVED REPORT EKG Measurement Heart [id number] <Conclusion> Sinus bradycardia with marked sinus arrhythmia T wave abnormality, consider lateral ischemia Prolonged QT Abnormal ECG
[2017-09-06 16:39] VITALS: PULSE 58
[2017-09-06 17:02] VITALS: BP 122/80; TEMP 98.4
== END 2017-09-06 18:22 | disposition home or self-care (01) ==
LOC: C.ER 15:32 → C.9E 19:14 → C.6T 19:59
PROVIDERS: ADMIT Family Medicine; ATTEND Family Medicine
DX: R07.9 Chest pain, unspecified (principal); I10 Essential (primary) hypertension; E03.9 Hypothyroidism, unspecified; I45.81 Long QT syndrome; R19.7 Diarrhea, unspecified; Z79.899 Other long term (current) drug therapy
CPT/HCPCS: 36415; 71020; 80053; 80061; 81001; 83036; 84439; 84443; 84484; 85025; 85730; 87045; 89055; 93005; 96361; 96374; 96375; 99284; G0378; J1644; J2405; J7040